=== PATIENT | female | born 1970 ===

== ENCOUNTER 2022-12-18 06:21 | Day surgery (SDC) | payer OTHER ==
[~2022-12-18] VITALS: Ht 154.9 cm; Wt 63.5 kg
[~2022-12-18 06:21] MED LIST: AMBIEN10 MG PO; CYMBALTA60 MG PO; ELIQUIS2.5 MG PO; LOSARTAN POTAS100 MG PO; PEPCID40 MG PO; STELARA90 MG/1 ML SQ; TRAZODONE HCL50 MG PO; WELCHOL625 MG PO
[2022-12-18] MEDS ORDERED: DERMOPLAST PAIN78 GM TOP (12:44)
[2022-12-18] MEDS ORDERED: PERCOCET 5-3251 EACH PO (12:44)
[2022-12-18] MEDS ORDERED: KETO10TA2 PO (12:44)
[2022-12-18] MEDS ORDERED: NEURONTIN300 MG PO (12:44)
== END 2022-12-18 18:00 | disposition home or self-care (01) ==
LOC: CIR.AMB 06:21
PROVIDERS: ATTEND Surgery
DX: K64.4 Residual hemorrhoidal skin tags (principal); K64.8 Other hemorrhoids; K64.2 Third degree hemorrhoids; Z20.822 Contact with and (suspected) exposure to COVID-19; K62.2 Anal prolapse; Z88.8 Allergy status to other drugs, medicaments and biological substances